=== PATIENT | female | born 1995 | race Two or more races ===

== ENCOUNTER 2024-12-05 07:55 | Emergency (ER) | payer MEDICAID, SELFPAY ==
[2024-12-05 08:08] VITALS: PULSE 104; RESP 20; O2SAT 98
[2024-12-05 08:12] VITALS: BP 111/78; PULSE 97; RESP 18; TEMP 36.8; O2SAT 98; BMI 29.8
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
[2024-12-05 10:24] LABS: HCG Qualitative,Urine Negative
[2024-12-05 11:04] VITALS: BP 105/70; PULSE 83; RESP 17; TEMP 36.8; O2SAT 98
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
[2024-12-05] MEDS: HYDROcodone/APAP 5/325 TABLET 1 TAB PO (11:27)
== END 2024-12-05 11:32 | disposition home or self-care (01) ==
PROVIDERS: Nurse Practitioner Primary Care; Emergency Provider Family Medicine; PCP Family Medicine
DX: S09.90XA Unspecified injury of head, initial encounter (principal); S40.012A Contusion of left shoulder, initial encounter; S19.9XXA Unspecified injury of neck, initial encounter; S29.9XXA Unspecified injury of thorax, initial encounter; S39.91XA Unspecified injury of abdomen, initial encounter; V89.2XXA Person injured in unspecified motor-vehicle accident, traffic, initial encounter
CPT/HCPCS: 70450; 71250; 72125; 73030; 74176; 81025; 99283; A9270